=== PATIENT | male | born 1990 | race Caucasian/White ===

== ENCOUNTER 2019-11-01 16:50 | Emergency (ER) | payer SELFPAY ==
[~2019-11-01] VITALS: Ht 180.3 cm; Wt 54.0 kg
[2019-11-01 16:55] VITALS: BP 134/70
== END 2019-11-01 17:35 | disposition left against medical advice (07) ==
LOC: ER 16:58
DX: R53.1 Weakness (principal); Z59.0 Homelessness; R46.2 Strange and inexplicable behavior
CPT/HCPCS: 99283